=== PATIENT | female | born 1985 | race Caucasian/White ===

== ENCOUNTER 2020-01-14 19:47 | Inpatient (IN) ==
[2020-01-14 19:19] LABS: Bacteria,Urine Many per hpf (None-Few); Bilirubin,Urine Negative (Negative); Blood,Urine Large (Negative); Clarity,Urine Ex.Turbid (Clear); Color,Urine Dark-Yellow (Yellow); Glucose,Urine (UA) Normal (Normal); Hyaline Casts,Urine Few per lpf (None Seen); Ketones,Urine 10 mg/dL (Negative); Leukocyte Esterase,Urine Large (Negative); Mucus,Urine Moderate per lpf (None-Few); Nitrite,Urine Negative (Negative); Protein,Urine 100 mg/dL (Neg-Trace); RBC,Urine 15-30 per hpf (0-3); Specific Gravity,Urine > 1.030 (1.010-1.025); Squamous Epithelial Cell,Urine Many per hpf (None-Few); WBC,Urine 50-100 per hpf (0-3)
[~2020-01-14 19:47] MED LIST: Azithromycin 500 MG in 0.9 % Sodium Chloride 250 ML IVPB ONE; CeFAZolin 2,000 MG/50 ML BAG IVPB ONE; Famotidine 20 MG/2 ML VIAL IVP ONE; Metoclopramide 10 MG/2 ML VIAL IVP ONE
[2020-01-14] MEDS ORDERED: Ringers Solution, Lactated 1,000 ML IVC SCH (20:00)
[2020-01-14] MEDS ORDERED: Ringers Solution, Lactated 1,000 ML ONE ×2 (20:02→20:31)
[2020-01-14 20:10] LABS: Basophils % 0.2 %; Eosinophils # 0.1 K/mcL (0.0-0.6); Eosinophils % 0.7 %; Hematocrit 34.4 % (35.3-44.9); Hemoglobin 11.6 g/dL (11.5-15.4); Immature Granulocytes % 0.5 % (0-4); Lymphocytes # 1.4 K/mcL (0.6-4.6); Mean Corpuscular HGB Conc 33.7 g/dL (31.6-35.5); Mean Platelet Volume 10.4 fL (9.4-12.4); Monocytes # 0.6 K/mcL (0.0-1.3); Monocytes % 5.5 %; Platelet Count 158 K/mcL (140-400); Red Blood Count 3.62 M/mcL (3.82-4.97); Red Cell Distribution Width 12.3 % (11.5-14.5); Segmented Neutrophils % 79.1 %; White Blood Count 10.1 K/mcL (4.3-11.1)
[2020-01-14] MEDS ORDERED: *HR* Morphine Sulfate/PF 10 MG/10 ML AMPUL ONE (20:19)
[2020-01-14] MEDS ORDERED: *HR* FentaNYL (PF) 100 MCG/2 ML VIAL ONE (20:19)
[2020-01-14 20:24] LABS: Amphetamine Screen,Urine Negative ng/mL (Cutoff=1000); Barbiturate Screen,Urine Negative ng/mL (Cutoff=200); Benzodiazepines Screen,Urine Negative ng/mL (Cutoff=200); Cannabinoid Screen,Urine Negative ng/mL (Cutoff = 50); Cocaine Screen,Urine Negative ng/mL (Cutoff= 300); Opiate Screen,Urine Negative ng/mL (Cutoff=300); Phencyclidine Screen,Urine Negative ng/mL (Cutoff=25)
[2020-01-14] MEDS ORDERED: *HR* Oxytocin 10 UNIT/ML VIAL IM ONE ×2 (20:24→21:18)
[2020-01-14] MEDS ORDERED: Acetaminophen IV 1,000 MG/100 ML INFUS..BTL ONE (20:31)
[2020-01-14] MEDS ORDERED: *HR* FentaNYL (PF) 100 MCG/2 ML VIAL IVP PRN (20:38)
[2020-01-14] MEDS ORDERED: Ondansetron 4 MG/2 ML VIAL IVP PRN (20:38)
[2020-01-14] MEDS ORDERED: *HR* Phenylephrine 10 MG/ML VIAL ONE (21:01)
[2020-01-14] MEDS ORDERED: Oxytocin 20 units/ LR 1000 mL 20 UNIT/1,000 ML BAG IVC ONE (23:25)
[2020-01-15] MEDS ORDERED: Sennosides 8.6 MG TABLET PO PRN (00:51)
[2020-01-15] MEDS ORDERED: Simethicone 80 MG TAB.CHEW PO PRN (00:51)
[2020-01-15] MEDS ORDERED: Oxytocin 20 units/ LR 1000 mL 20 UNIT/1,000 ML BAG IVC SCH ×2 (00:51)
[2020-01-15] MEDS ORDERED: Ondansetron 4 MG/2 ML VIAL IVP PRN (00:51)
[2020-01-15] MEDS ORDERED: Metoclopramide 10 MG/2 ML VIAL IVP PRN (00:51)
[2020-01-15] MEDS: Ibuprofen 600 MG TABLET PO SCH ×4 (01:12→19:05)
[2020-01-15] MEDS: Acetaminophen 325 MG TABLET PO SCH ×4 (03:10→21:14)
[2020-01-15 05:31] LABS: Basophils % 0.1 %; Hematocrit 26.3 % (35.3-44.9); Mean Corpuscular HGB Conc 33.5 g/dL (31.6-35.5)
[2020-01-15 05:33] LABS: Eosinophils # 0.1 K/mcL (0.0-0.6); Eosinophils % 0.9 %; Hemoglobin 8.8 g/dL (11.5-15.4); Immature Granulocytes % 0.3 % (0-4); Immature Platelets 4.2 % (1.1-6.1); Lymphocytes # 1.2 K/mcL (0.6-4.6); Mean Corpuscular Hemoglobin 32.4 pg (28.0-33.3); Mean Corpuscular Volume 96.7 fL (83.0-100.0); Mean Platelet Volume 10.7 fL (9.4-12.4); Monocytes # 0.6 K/mcL (0.0-1.3); Monocytes % 6.4 %; Neutrophils # 7.1 K/mcL (1.6-8.9); Platelet Count 129 K/mcL (140-400); Red Blood Count 2.72 M/mcL (3.82-4.97); Red Cell Distribution Width 12.5 % (11.5-14.5); Segmented Neutrophils % 79.3 %
[2020-01-15] MEDS: Prenatal Vit/FA 1 EACH TABLET PO SCH (08:02)
[2020-01-15] MEDS: Acyclovir 200 MG CAPSULE PO SCH ×3 (08:02→21:14)
[2020-01-16] MEDS: Ibuprofen 600 MG TABLET PO SCH ×3 (00:10→13:44)
[2020-01-16] MEDS: Acetaminophen 325 MG TABLET PO SCH ×2 (02:46→07:48)
[2020-01-16] MEDS: *HR* OxyCODONE Immed Rel 5 MG TABLET PO PRN ×2 (02:49→10:17)
[2020-01-16] MEDS: Prenatal Vit/FA 1 EACH TABLET PO SCH (07:48)
[2020-01-16] MEDS: Acyclovir 200 MG CAPSULE PO SCH (07:48)
[2020-01-16 07:54] VITALS: BP 107/69
[2020-01-19 06:54] LABS: HSV 2 Glycoprotein G IgG 2.48 IV (<=0.89)
== END 2020-01-16 15:33 | disposition home or self-care (01) | DRG 539 ==
LOC: 1NENULAB → 1NENUOBS 01-15 00:27
PROVIDERS: ADMIT Obstetrics & Gynecology; ATTEND Obstetrics & Gynecology